=== PATIENT | male | born 2000 | race American Indian/Alaskan Native ===

== ENCOUNTER 2019-04-01 09:18 | Emergency (ER) | payer OTHER, SELFPAY ==
[2019-04-01 09:34] VITALS: BP 112/72; PULSE 85; RESP 15; TEMP 36.7; O2SAT 96; BMI 23.5
--- NOTE | 2019-04-01 10:07 | ED_ITS ---
HPI - URI/Sore Throat General Chief Complaint: Upper Respiratory Symptoms Stated Complaint: thing in throat,hurts to swallow Time Seen by Provider: 04/01/19 09:58 Source: patient Mode of arrival: Ambulatory Limitations: no limitations History of Present Illness HPI Narrative: 18-year-old male here for evaluation of a sore throat and throat fullness. States has been going on for the past couple days. No sinus con gestion. Is able to swallow and maintain his airway. Has not tried anything for symptoms prior to arrival Related Data Previous Rx's Medication Instructions Recorded loratadine [Claritin] 10 mg PO DAILY PRN #30 tab 04/01/19 Allergies Allergy/AdvReac Type Severity Reaction Status Date / Time No Known Drug Allergies Allergy Verified 04/01/19 09:34 Review of Systems Constitutional Constitutional: Denies fever(s), Denies headache(s), Denies lethargy and Denies malaise ENT Ears, Nose, Mouth, and Throat: Denies change in voice, Denies headache(s), Reports sore throat and Reports throat swelling Cardiovascular Cardiovascular: Denies chest pain and Denies dyspnea Respiratory Respiratory: Denies dyspnea Gastrointestinal Gastrointestinal: Denies abdominal pain, Denies nausea and Denies vomiting Genitourinary Genitourinary: Denies dysuria Musculoskeletal Musculoskeletal: Denies myalgias and Denies arthralgias Integumentary/Breasts Skin/Breast: Denies rash Neurologic Neurologic: Denies behavioral changes and Denies headache(s) Psychiatric Psychiatric: Denies behavioral changes Hematologic/Lymphatic Hematologic/Lymphatic: Denies easy bleeding and Denies easy bruising Allergic/Immunologic Allergic/Immunologic: Reports throat swelling [facility] Medical History Patient denies medical problems (Acute) Social History Smoking Status: Current every day smoker Social History Smoking Status: Current every day smoker Exam Initial Vital Signs Initial Vital Signs: Vital Signs Temperature 98.1 F 04/01/19 09:34 Pulse Rate 85 04/01/19 09:34 Respiratory Rate 15 04/01/19 09:34 Blood Pressure 112/72 04/01/19 09:34 Pulse Oximetry 96 04/01/19 09:34 Const General: cooperative, comfortable and well developed Orientation: alert, awake and oriented x3 HENMT Head: normal to inspection and normocephalic Ears: TM normal on the right and other (Left TM bulging without redness) Face and sinus: normal facial exam Throat: posterior oropharynx normal Neck Lymphatic: lymphadenopathy Resp Effort & Inspection: normal respiratory effort Auscultation: clear to auscultation bilaterally Cardio Rate: regular rate Rhythm: regular rhythm Skin Lesions: no lesions Rashes: no rashes Neuro General: alert and awake Cognition: normal cognition Speech: speech normal Extrem General: capillary refill normal Psych Appearance: grossly normal and well kempt Course Orders Ordered: Discontinued Medications Dexamethasone (Decadron) 10 mg PO NOW ONE Stop: 04/01/19 10:07 Vital Signs Vital signs: Vital Signs - 8 hr 04/01/19 09:34 Temperature 98.1 F Pulse Rate 85 Respiratory Rate 15 Blood Pressure 112/72 Pulse Oximetry 96 MDM - URI/Sore Throat Lab Data Labs: Point of Care Testing Rapid Strep A Negative [facility] [place] Narrative Medical decision making narrative: Rapid strep is negative, does have left bulging tympanic membrane. Does have lymphadenopathy as well. Patient is ma intaining airway. Is tolerating secretions. Was given Decadron here in the ER. Will send home with symptom treatment. No further workup needed in the ER. He is given return precautions and follow-up money. He expressed understanding and agreement plan Discharge Plan Departure Patient Disposition: Home Clinical Impression: Pharyngitis Qualifiers: Pharyngitis/tonsillitis etiology: unspecified etiology Qualified Code(s): J02.9 - Acute pharyngitis, unspecified Instructions: Sore Throat Activity Restrictions/Additional Instructions: Recommend you start taking the decongestant you were given a prescription for today as directed. Contact your primary provider for follow-up. Return to the emergency department for any new or worsening symptoms Prescriptions: New loratadine [Claritin] 10 mg tablet 10 mg PO DAILY PRN (Reason: allergy symptoms) Qty: 30 RF: 0
[2019-04-01] MEDS: DEXAMETHASONE 10 MG/ML VIAL PO (10:24)
[2019-04-01 10:25] VITALS: BP 114/65; PULSE 79; RESP 16; O2SAT 98
== END 2019-04-01 10:30 | disposition home or self-care (01) ==
PROVIDERS: Emergency Provider Emergency Medicine
DX: J02.9 Acute pharyngitis, unspecified (principal)
CPT/HCPCS: 87880; 99282; 99283; J1100

== ENCOUNTER 2019-04-13 12:45 | Emergency (ER) | payer OTHER, SELFPAY ==
[2019-04-13 13:23] VITALS: BP 105/66; PULSE 72; RESP 15; TEMP 36.3; O2SAT 96; BMI 25.0
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
--- NOTE | 2019-04-13 13:45 | PC.NURSE ---
Pt denies loss bowel/bladder
== END 2019-04-13 14:02 | disposition home or self-care (01) ==
PROVIDERS: Emergency Provider Internal Medicine
DX: M53.3 Sacrococcygeal disorders, not elsewhere classified (principal)
CPT/HCPCS: 99282

== ENCOUNTER 2022-03-05 12:42 | Emergency (ER) | payer SELFPAY ==
[2022-03-05 12:48] VITALS: BP 125/60; PULSE 92; RESP 19; TEMP 37.1; O2SAT 99; BMI 33.2
--- NOTE | 2022-03-05 16:07 | ED_ITS ---
HPI - Skin/Abscess/Foreign Bdy General Chief complaint: Skin/Abscess/Foreign Body Stated complaint: Bumps on the lip Time Seen by Provider: 03/05/22 15:30 Source: patient Mode of arrival: Family Vehicle Limitations: no limitations History of Present Illness HPI narrative: This is a 21-year-old male who presents to the emergency department complaining of bumps on his lip which he noticed yesterday. He denies any recent fever, chills, new contact with anybody with this similar bumps. Patient's states that they are blisters, very tender, denies any bleeding or any lesions in his mouth. He denies any other lesions on his hands, feet, genitals or other. Related Data Previous Rx's Medication Instructions Recorded loratadine 10 mg tablet (Claritin) 10 mg PO DAILY PRN allergy 04/01/19 symptoms #30 tabs meloxicam 7.5 mg tablet (Mobic) 7.5 mg PO DAILY back pain #30 tabs 04/13/19 docosanol 10 % topical cream 1 applic topical 5XD #2 grams 03/05/22 (Abreva) mupirocin 2 % topical ointment 1 applic topical BID #15 grams 03/05/22 valacyclovir 1 gram tablet 1,000 mg PO BID 7 days #14 tabs 03/05/22 (Valtrex) Allergies Allergy/AdvReac Type Severity Reaction Status Date / Time No Known Drug Allergies Allergy Verified 03/05/22 12:51 Review of Systems Review of Systems Narrative: Review of systems is negative for acute abnormalities unless otherwise noted in HPI Patient History Medical History Chronic low back pain Patient denies medical problems Surgical History Status post wisdom tooth extraction Social History Smoking Status: Current every day smoker Smoking Status: Current every day smoker tobacco type: cigarettes alcohol intake frequency: 0-2 drinks per day Substance Use Type: marijuana Exam Narrative Exam Narrative: Reviewed vitals signs and nursing notes. General: cooperative, comfortable, in no acute distress, well groomed HEENT: symmetrical facial expressions, moist mucous membranes, 2 blisters on his lips with 2 crusted over healing lesions that appeared to be vesicles previously. This looks most like herpetic lesions with blisters. Viral culture obtained and is pending, no intraoral involvement, nares are patent, mucous membranes are moist, EOMs intact, PERRLA MSK: moves all extremities, neurovascularly intact, no weakness, normal tone Skin: brisk capillary refill, without pallor or erythema Neuro: normal speech and cognition, A&O x3, ambulatory, clear speech Psych: mental status is grossly normal, congruent mood, normal affect, pleasant and cooperative Initial Vital Signs Initial Vital Signs: Vital Signs Temperature 98.8 F 03/05/22 12:48 Pulse Rate 92 H 03/05/22 12:48 Respiratory Rate 19 03/05/22 12:48 Blood Pressure 125/60 03/05/22 12:48 Pulse Oximetry 99 03/05/22 12:48 Oxygen Delivery Method 03/05/22 12:48 Course Vital Signs Vital signs: Vital Signs - 8 hr 03/05/22 12:48 Temperature 98.8 F Pulse Rate 92 H Respiratory Rate 19 Blood Pressure 125/60 Pulse Oximetry 99 Oxygen Delivery Method Room Air MDM - Skin/Abscess/Foreign Bdy MDM Narrative Medical decision making narrative: This is a 21-year-old male presents to the emergency department with vesicles on his lips that appeared yesterday without history of this in the past. This looked most like HSV, viral culture is pending, patient was treated with valacyclovir and given Abreva and topical mupirocin to use as needed. Encourage patient to follow-up with his primary care provider if this recurs, and to wear a mask if he is going to continue to work, avoid contact with young children and women. Patient understands that this is contagious as long as there are blisters and discharge. Patient is appropriate and amenable to discharge home. Vital signs are stable on repeat examination is unremarkable. Patient has been informed of results. Patient has been given strict return to ER precautions for any new or worsening symptoms. Patient understands to follow up closely with outpatient providers as instructed. Patient understands plan and agrees to discharge home. All questions and concerns answered at this time. 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 This is something that can come back, sometimes this happens if you have an injury to your lip, a sunburn, or in the winter time when your lips cracked. This may never come back again it is hard to know what will happen in the future. 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 Please avoid people if you know any while this is open. I hope you feel better soon *What to do: *Please continue to take your regular medications as directed. [x ] New medication prescriptions sent to your pharmacy: [facility]] [ ] New medication written as a paper prescription [ ] No new medications given *Please follow up with your primary care provider in 2-3 days, call for an appointment. Let them know you were seen in the Emergency Department and that we asked that you be seen for follow-up. We will electronically transmit a record of today's note if your PCP is in our system *If you do not have a primary care provider please contact [phone] to establish care with one of the [facility] primary care providers. *Return to Emergency Department if you should have any new, worsening, or concerning symptoms, such as [fever greater than 101F, chills, worsening pain, persistent vomiting or other bothersome symptoms]. Prescriptions: New valacyclovir [Valtrex] 1 gram tablet 1,000 mg PO BID 7 Days Qty: 14 0RF mupirocin 2 % ointment 1 applic topical BID Qty: 15 0RF docosanol [Abreva] 10 % cream 1 applic topical 5XD Qty: 2 0RF No Action loratadine [Claritin] 10 mg tablet 10 mg PO DAILY PRN (Reason: allergy symptoms) Qty: 30 0RF meloxicam [Mobic] 7.5 mg tablet 7.5 mg PO DAILY Qty: 30 0RF Rx Instructions: 1-2 tablets daily with food for back pain. Not with other NSAIDs Visit Report Forms: Patient Portal/API
== END 2022-03-05 16:22 | disposition home or self-care (01) ==
PROVIDERS: Emergency Provider Nurse Practitioner Critical Care Medicine
DX: B00.2 Herpesviral gingivostomatitis and pharyngotonsillitis (principal)
CPT/HCPCS: 87252; 99281; 99282

== ENCOUNTER 2022-03-30 16:06 | Emergency (ER) | payer SELFPAY ==
[2022-03-30 16:14] VITALS: BP 108/68; PULSE 65; RESP 18; TEMP 36.7; O2SAT 99; BMI 32.4
--- NOTE | 2022-03-30 19:02 | ED.EAR ---
HPI - Ear Problem <Anthony Chavira PA-C - Last Filed: 03/30/22 19:09> General Chief complaint: Ear Stated complaint: can't hear out of left ear Time Seen by Provider: 03/30/22 18:55 Source: patient Mode of arrival: Family Vehicle History of Present Illness HPI Narrative: Patient is a 21-year-old male who presents to the emergency room today with complaint diminished hearing in his left ear that started this morning. States that he has regained some of the urine was still mostly cannot hear. Denies drainage or pain of the but states that he had for respiratory issues for the last 2 weeks. Denies chest pain shortness of breath any other concerns the Related Data Previous Rx's Medication Instructions Recorded loratadine 10 mg tablet (Claritin) 10 mg PO DAILY PRN allergy 04/01/19 symptoms #30 tabs meloxicam 7.5 mg tablet (Mobic) 7.5 mg PO DAILY back pain #30 tabs 04/13/19 docosanol 10 % topical cream 1 applic topical 5XD #2 grams 03/05/22 (Abreva) mupirocin 2 % topical ointment 1 applic topical BID #15 grams 03/05/22 amoxicillin 500 mg-potassium 1 tab PO BID #14 tabs 03/30/22 clavulanate 125 mg tablet (Augmentin) Allergies Allergy/AdvReac Type Severity Reaction Status Date / Time No Known Drug Allergies Allergy Verified 03/30/22 16:14 Review of Systems <Anthony Chavira PA-C - Last Filed: 03/30/22 19:09> Review of Systems Narrative: R.O.S.: General: No fever, chills or fatigue. Cardiovascular: No chest pain or palpitations Respiratory: No S.O.B. HEENT: Difficulty hearing out of left ear since this morning Gastrointestinal: No nausea or vomiting Skin: No rash or associated abnormalities Musculoskeletal: No pain in muscles or joints, no limitation of range of motion, no paresthesia or numbness. ?? Neurological: Awake, alert and in not apparent distress. No Headaches, changes in vision or other related neurological concerns. Patient History <Anthony Chavira PA-C - Last Filed: 03/30/22 19:09> Medical History Chronic low back pain Patient denies medical problems Surgical History Status post wisdom tooth extraction Social History Smoking Status: Current every day smoker Smoking Status: Current every day smoker tobacco type: cigarettes alcohol intake frequency: 0-2 drinks per day Substance Use Type: marijuana Exam <Anthony Chavira PA-C - Last Filed: 03/30/22 19:09> Narrative Exam Narrative: Physical Exam: ? General: normal appearance, well developed, well nourished, alert, and awake. Not in acute distress. ? Head: Normocephalic, no lesions. Chest: Lungs CTAB, no rales, rhonchi or wheezes. ?? Heart: RRR, no murmurs, rubs or gallops. Ears: Left tympanic membrane brain is erythematous. Left ear Canal and moderate cerumen and is without drainage. Eyes: PERRLA, EOM's full, conjunctivae clear. ? Neuro: Physiological, no localizing findings, CN3-12 intact. ?? Extremities: Warm, well perfused, FROM, no deformities, no edema. ?? Skin: Normal, no rashes, no lesions noted. ?? PSYCHIATRIC: The mood is good, no blunted affect. Speech is clear. Thought process is linear, thought content is appropriate. The voice is without significant inflection. Gastrointestinal: Soft; NT; ND; Pos BS with Neg. rebound tenderness. No scars or major deformities noted on Visual Inspection. Initial Vital Signs Initial Vital Signs: Vital Signs Temperature 98.1 F 03/30/22 16:14 Pulse Rate 65 03/30/22 16:14 Respiratory Rate 18 03/30/22 16:14 Blood Pressure 108/68 03/30/22 16:14 Pulse Oximetry 99 03/30/22 16:14 Oxygen Delivery Method 03/30/22 16:14 <Carmen Her DO - Last Filed: 03/31/22 05:44> Initial Vital Signs Initial Vital Signs: Vital Signs Temperature 98.1 F 03/30/22 16:14 Pulse Rate 65 03/30/22 16:14 Respiratory Rate 18 03/30/22 16:14 Blood Pressure 108/68 03/30/22 16:14 Pulse Oximetry 99 03/30/22 16:14 Oxygen Delivery Method 03/30/22 16:14 Course <Anthony Chavira PA-C - Last Filed: 03/30/22 19:09> Vital Signs Vital signs: Vital Signs - 8 hr 03/30/22 16:14 Temperature 98.1 F Pulse Rate 65 Respiratory Rate 18 Blood Pressure 108/68 Pulse Oximetry 99 Oxygen Delivery Method Room Air <Carmen Her DO - Last Filed: 03/31/22 05:44> Vital Signs Vital signs: Vital Signs - 8 hr 03/30/22 16:14 Temperature 98.1 F Pulse Rate 65 Respiratory Rate 18 Blood Pressure 108/68 Pulse Oximetry 99 Oxygen Delivery Method Room Air Medical Decision Making <Anthony Chavira PA-C - Last Filed: 03/30/22 19:09> MDM Narrative Medical decision making narrative: Patient is a 21-year-old male who presents to the emergency room today with complaint decreased urine is clear sinuses nontender. Physical exam revealed an erythematous left tympanic membrane antibiotics ordered and provided discussed otitis media with patient. Patient advised to return to the emergency room should any emergent concerns otherwise the patient remained plan Discharge Plan Departure Patient Disposition: Home Clinical Impression: Otitis media Instructions: Middle Ear Infection Activity Restrictions/Additional Instructions: *You have been diagnosed with left middle ear infection. I have ordered antibiotics for UR bacterial infection I suggest you take the antibiotics as ordered. I also suggest she return to the emergency room any emergent concerns arise. [ ] *What to do: *Please continue to take your regular medications as directed. [x] New medication prescriptions sent to your pharmacy: [ ] [ ] New medication written as a paper prescription [ ] No new medications given *Please follow up with your primary care provider in 2-3 days, call for an appointment. Let them know you were seen in the Emergency Department and that we ask that you be seen in follow up. We will electronically transmit a record of today's note if your PCP is in our system *If you do not have a primary care provider please contact the [facility] Resource line at [phone]. They will ask some questions about your medical history and help get you set up with a doctor in the community. *Return to Emergency Department if you should have any new, worsening or concerning symptoms, such as [fever greater than 101 F, shaking chills, worsening pain, persistent vomiting or other bothersome symptoms] Prescriptions: New amoxicillin-pot clavulanate [Augmentin] 500-125 mg tablet 1 tab PO BID Qty: 14 0RF No Action loratadine [Claritin] 10 mg tablet 10 mg PO DAILY PRN (Reason: allergy symptoms) Qty: 30 0RF meloxicam [Mobic] 7.5 mg tablet 7.5 mg PO DAILY Qty: 30 0RF Rx Instructions: 1-2 tablets daily with food for back pain. Not with other NSAIDs mupirocin 2 % ointment 1 applic topical BID Qty: 15 0RF docosanol [Abreva] 10 % cream 1 applic topical 5XD Qty: 2 0RF Visit Report Forms: Patient Portal/API <Carmen Her DO - Last Filed: 03/31/22 05:44> Cosign ED Attending Cosignature Attestation: I was immediately available in the department for consultation. Documentation has been reviewed.
== END 2022-03-30 19:32 | disposition home or self-care (01) ==
PROVIDERS: Emergency Provider Physician Assistant
DX: H66.92 Otitis media, unspecified, left ear (principal)
CPT/HCPCS: 99281

== ENCOUNTER 2022-04-04 08:22 | Emergency (ER) | payer SELFPAY ==
[2022-04-04 08:29] VITALS: BP 134/82; PULSE 75; RESP 16; TEMP 36.7; O2SAT 98; BMI 29.0
--- NOTE | 2022-04-04 08:34 | ED_ITS ---
HPI - General Adult General Chief complaint: Eye Problems Stated complaint: Rt eye irritated/painful Time Seen by Provider: 04/04/22 08:30 Source: patient Mode of arrival: Ambulatory History of Present Illness HPI narrative: Patient is a 21-year-old male who does wear contact lenses who is here for evaluation of a right eye irritation/redness/?pressure? he states that last night when he was taking out his contact lenses when the symptoms started. He has no itching but just a pressure in his right eye. Watering and redness. He was recently seen here for left-sided acute otitis media and is on antibiotics for this. No fevers. No prior eye surgeries. Related Data Previous Rx's Medication Instructions Recorded loratadine 10 mg tablet (Claritin) 10 mg PO DAILY PRN allergy 04/01/19 symptoms #30 tabs meloxicam 7.5 mg tablet (Mobic) 7.5 mg PO DAILY back pain #30 tabs 04/13/19 docosanol 10 % topical cream 1 applic topical 5XD #2 grams 03/05/22 (Abreva) mupirocin 2 % topical ointment 1 applic topical BID #15 grams 03/05/22 amoxicillin 500 mg-potassium 1 tab PO BID #14 tabs 03/30/22 clavulanate 125 mg tablet (Augmentin) levofloxacin 0.5 % eye drops 2 drp EYE-RIGHT Q2H #5 mL 04/04/22 Allergies Allergy/AdvReac Type Severity Reaction Status Date / Time No Known Drug Allergies Allergy Verified 04/04/22 08:33 Review of Systems Constitutional Constitutional: Reports system reviewed and no additional complaints, except as documented Eyes Eyes: Reports system reviewed and no additional complaints, except as documented ENT Ears, Nose, Mouth, and Throat: Reports system reviewed and no additional complaints, except as documented Integumentary/Breasts Skin/Breast: Reports system reviewed and no additional complaints, except as documented Neurologic Neurologic: Reports system reviewed and no additional complaints, except as documented Patient History Medical History Chronic low back pain Patient denies medical problems Surgical History Status post wisdom tooth extraction Social History (Reviewed 04/04/22 @ 08:42 by VANE Swanson Smoking Status: Current every day smoker Smoking Status: Current every day smoker tobacco type: cigarettes alcohol intake frequency: 0-2 drinks per day Substance Use Type: marijuana Exam Initial Vital Signs Initial Vital Signs: Vital Signs Temperature 98.0 F 04/04/22 08:29 Pulse Rate 75 04/04/22 08:29 Respiratory Rate 16 04/04/22 08:29 Blood Pressure 134/82 04/04/22 08:29 Pulse Oximetry 98 04/04/22 08:29 Oxygen Delivery Method 04/04/22 08:29 Const General: cooperative, healthy appearing and comfortable [facility] Head: normal to inspection and normocephalic Face and sinus: normal facial exam Eyes Other: Left eye is unremarkable. Right eye shows no surrounding erythema. No foreign body. Does have scleral injection/redness. Clear drainage. Fluorescein staining does show a corneal abrasion at midline in the visual axis. No indication for ulceration. No foreign body noted. Skin Other: No cellulitis around the right eye Course Orders Ordered: Discontinued Medications Fluorescein Sodium (Fluorescein 1 Mg Strip) 1 mg EYE-BOTH NOW ONE Stop: 04/04/22 08:34 Proparacaine HCl (Proparacaine 0.5% Ophth Aliza) 1 drops EYE-RIGHT NOW ONE Stop: 04/04/22 08:34 Vital Signs Vital signs: Vital Signs - 8 hr 04/04/22 08:29 Temperature 98.0 F Pulse Rate 75 Respiratory Rate 16 Blood Pressure 134/82 Pulse Oximetry 98 Oxygen Delivery Method Room Air Medical Decision Making MDM Narrative Medical decision making narrative: History and physical exam is consistent with a right-sided corneal abrasion. He was given erythromycin ointment here in the emergency department however since he is a contact lens wear will send him home with Levaquin. This was sent to the pharmacy of his choice. He was instructed not to wear the contact lenses until his symptoms have improved. He was given return precautions. He expressed understanding and agreement. Discharge Plan Departure Patient Disposition: Home Clinical Impression: Corneal abrasion Instructions: DI for Corneal Abrasion Activity Restrictions/Additional Instructions: Use the antibiotics that was sent to [facility] per your recommendation. Do not wear your contact lenses for at least the next 4 days or until your symptoms have improved. Return to the emergency department for any new or worsening symptoms. Prescriptions: New levofloxacin 0.5 % drops 2 drp EYE-RIGHT Q2H Qty: 5 0RF Rx Instructions: 2GTT R eye Q2H for 2 days then Q6H for 5 days No Action loratadine [Claritin] 10 mg tablet 10 mg PO DAILY PRN (Reason: allergy symptoms) Qty: 30 0RF meloxicam [Mobic] 7.5 mg tablet 7.5 mg PO DAILY Qty: 30 0RF Rx Instructions: 1-2 tablets daily with food for back pain. Not with other NSAIDs mupirocin 2 % ointment 1 applic topical BID Qty: 15 0RF docosanol [Abreva] 10 % cream 1 applic topical 5XD Qty: 2 0RF amoxicillin-pot clavulanate [Augmentin] 500-125 mg tablet 1 tab PO BID Qty: 14 0RF Stand Alone Forms: Work Release Note
[2022-04-04] MEDS: ERYTHROMYCIN OPHTH 1 GM OINT 1 APPLIC EYE-RIGHT (08:47)
[2022-04-04] MEDS: PROPARACAINE 0.5% OPHTH SOL 1 DROPS EYE-RIGHT (08:47)
[2022-04-04] MEDS: FLUORESCEIN 1 MG STRIP EYE-BOTH (08:47)
[2022-04-04 09:03] VITALS: BP 132/84; PULSE 78; RESP 18; O2SAT 99
== END 2022-04-04 09:00 | disposition home or self-care (01) ==
PROVIDERS: Emergency Provider Emergency Medicine
DX: S05.01XA Injury of conjunctiva and corneal abrasion without foreign body, right eye, initial encounter (principal)
CPT/HCPCS: 99282

== ENCOUNTER 2022-10-26 17:16 | Emergency (ER) | payer SELFPAY ==
[2022-10-26 17:45] VITALS: BP 118/69; PULSE 106; RESP 22; TEMP 37.7; O2SAT 97; BMI 33.2
--- NOTE | 2022-10-26 18:18 | DI.CT.S_ITS ---
PROCEDURE: CT SOFT TISSUE NECK W CON INDICATIONS: Peritonsillar abscess versus cellulitis versus deep infectio TECHNIQUE: After the administration of intravenous contrast, 3.0 mm axial sections acquired from the sella to the aortic arch. Additional oblique axial 3.0 mm sections acquired through the pharynx. 3 mm thick coronal and sagittal reformats were generated. For radiation dose reduction, the following was used: automated exposure control. COMPARISON: None. FINDINGS: Skull Base: The visualized intracranial contents, skull, and orbits are unremarkable. Bilateral maxillary sinus retention cysts measure up to 1.4 cm Pharynx and Larynx: There is hyperemia and swelling of the both palatine tonsils, left greater than right without evidence of peritonsillar abscess Muscles and Fascial Planes: Fascial planes are well maintained. No abscess or mass lesion. Lymph Nodes: Reactive appearing bilateral deep cervical adenopathy measures up to 1.3 cm in short axis on the left Vasculature: Unremarkable. Submandibular and Parotid Glands: Normal in size and attenuation. Thyroid: Unremarkable. No enlarged or calcified nodules. Bones: No acute fracture. No osteolytic or blastic lesion is evident. Normal bone mineralization. Lung Apices: The visualized lung apices are clear. IMPRESSION: 1. Swollen hypertrophic bilateral palatine tonsils consistent with pharyngitis/tonsillitis. No evidence of peritonsillar abscess 2. Reactive appearing bilateral deep cervical adenopathy Approved by: Genaro Starkey M.D. on 10/26/2022 at 18:21
--- NOTE | 2022-10-26 18:24 | ED_ITS ---
HPI - URI/Sore Throat <ARLINE Morales - Last Filed: 10/26/22 19:36> General Chief Complaint: Upper Respiratory Symptoms Stated Complaint: Swollen tonsils Time Seen by Provider: 10/26/22 18:18 Source: patient Mode of arrival: Family Vehicle History of Present Illness HPI Narrative: This is a 21-year-old male who presents to the emergency department complaining of swollen tonsils for the last 2-3 days but states that his symptoms started approximately 3 weeks ago with bilateral ear pain, congestion and sometimes a fever. He states that he is had a fever, has had difficulty swallowing, denies any shortness of breath or difficulty breathing. Denies history of strep throat infections, denies recent antibiotics. States that he is not allergic to any medications. Does not know anybody with strep throat. Related Data Previous Rx's Medication Instructions Recorded loratadine 10 mg tablet (Claritin) 10 mg PO DAILY PRN allergy 04/01/19 symptoms #30 tabs meloxicam 7.5 mg tablet (Mobic) 7.5 mg PO DAILY back pain #30 tabs 04/13/19 docosanol 10 % topical cream 1 applic topical 5XD #2 grams 03/05/22 (Abreva) mupirocin 2 % topical ointment 1 applic topical BID #15 grams 03/05/22 amoxicillin 500 mg-potassium 1 tab PO BID #14 tabs 03/30/22 clavulanate 125 mg tablet (Augmentin) levofloxacin 0.5 % eye drops 2 drp EYE-RIGHT Q2H #5 mL 04/04/22 amoxicillin 875 mg-potassium 1 tab PO BID 10 days #20 tabs 10/26/22 clavulanate 125 mg tablet benzocaine 15 mg-menthol 3.6 mg 1 sharron mucous membrane Q4H PRN sore 10/26/22 lozenges (Cepacol Sore Throat throat #16 ea (benzocaine-menthol)) prednisone 20 mg tablet 20 mg PO DAILY #4 tabs 10/26/22 Allergies Allergy/AdvReac Type Severity Reaction Status Date / Time No Known Drug Allergies Allergy Verified 10/26/22 17:45 Review of Systems <ARLINE Morales - Last Filed: 10/26/22 19:36> Review of Systems ROS Unobtainable: All systems reviewed & are unremarkable except as noted in HPI and below Patient History <ARLINE Morales - Last Filed: 10/26/22 19:36> Medical History Chronic low back pain Patient denies medical problems Surgical History Status post wisdom tooth extraction Social History Smoking Status: Current every day smoker Smoking Status: Current every day smoker tobacco type: cigarettes alcohol intake frequency: holidays/special occasions only Substance Use Type: marijuana Exam <ARLINE Morales - Last Filed: 10/26/22 19:36> Narrative Exam Narrative: Reviewed vitals signs and nursing notes. General: Pleasant, sitting upright, in no acute distress, well groomed, low- grade fever at 99.9 at triage HEENT: symmetrical facial expressions, moist mucous membranes, neck is supple, mild anterior cervical lymphadenopathy, no cough, post dear pharynx with erythema, exudate, bilateral tonsils with exudate, uvula is midline, mildly muffled voice,, airway is widely patent, no stridor CV: Tachycardic rate and regular rhythm, warm extremities Respiratory: normal work of breathing, without tachypnea or hypoxia. GI: abdomen soft, nondistended, without CVA tenderness bilaterally. MSK: moves all extremities, no weakness, normal tone, ambulatory without deficit Skin: brisk capillary refill, without rash or wound Neuro: clear speech and normal cognition, A&O x3, GCS 15, no focal motor or sensation deficits Initial Vital Signs Initial Vital Signs: Vital Signs Temperature 99.9 F H 10/26/22 17:45 Pulse Rate 106 H 10/26/22 17:45 Respiratory Rate 22 10/26/22 17:45 Blood Pressure 118/69 10/26/22 17:45 Pulse Oximetry 97 10/26/22 17:45 Oxygen Delivery Method Room Air 10/26/22 17:45 <Jose Henley DO - Last Filed: 10/26/22 20:30> Initial Vital Signs Initial Vital Signs: Vital Signs Temperature 99.9 F H 10/26/22 17:45 Pulse Rate 106 H 10/26/22 17:45 Respiratory Rate 22 10/26/22 17:45 Blood Pressure 118/69 10/26/22 17:45 Pulse Oximetry 97 10/26/22 17:45 Oxygen Delivery Method Room Air 10/26/22 17:45 Course <ARLINE Morales - Last Filed: 10/26/22 19:36> Orders Ordered: ED Orders 10/26/22 18:18 CT soft tissue neck w con Stat 10/26/22 18:35 CBC Auto Diff [Complete Blood Count AUTO DIFF] Stat CMP [Comprehensive Metabolic Panel] Stat Lactate (Lactic Acid) Stat Strep Grp A by PCR Rapid Stat 10/26/22 18:36 Throat Culture Stat Discontinued Medications Dexamethasone (Dexamethasone 10 Mg/Ml Vial) 16 mg PO NOW ONE Stop: 10/26/22 18:19 Last Admin: 10/26/22 18:46 Dose: 16 mg Documented By: RL Hydromorphone HCl (Hydromorphone 0.5 Mg Inj) 0.5 mg IV NOW ONE Stop: 10/26/22 18:19 Last Admin: 10/26/22 18:46 Dose: 0.5 mg Documented By: RL Sodium Chloride (Normal Saline 0.9%) 1,000 mls @ 1,000 mls/hr IV BOLUS ONE Stop: 10/26/22 19:17 Last Admin: 10/26/22 18:47 Dose: 1,000 mls/hr Documented By: RL Ketorolac Tromethamine (Ketorolac 30 Mg/Ml Vial) 30 mg IM NOW ONE Stop: 10/26/22 18:19 Last Admin: 10/26/22 18:47 Dose: 30 mg Documented By: RL Penicillin G Benzathine (Penicillin G Benzathine 1,200,000 Unit/2 Ml Syringe) 1,200,000 unit IM NOW ONE Stop: 10/26/22 18:23 Last Admin: 10/26/22 18:46 Dose: 1,200,000 unit Documented By: MATILDE Vital Signs Vital signs: Vital Signs - 8 hr 10/26/22 17:45 10/26/22 19:50 Temperature 99.9 F H 97.8 F Pulse Rate 106 H 76 Respiratory Rate 22 16 Blood Pressure 118/69 132/80 Pulse Oximetry 97 97 Oxygen Delivery Method Room Air Room Air <Jose Henley DO - Last Filed: 10/26/22 20:30> Orders Ordered: ED Orders 10/26/22 18:18 CT soft tissue neck w con Stat 10/26/22 18:35 CBC Auto Diff [Complete Blood Count AUTO DIFF] Stat CMP [Comprehensive Metabolic Panel] Stat Lactate (Lactic Acid) Stat Strep Grp A by PCR Rapid Stat 10/26/22 18:36 Throat Culture Stat Discontinued Medications Dexamethasone (Dexamethasone 10 Mg/Ml Vial) 16 mg PO NOW ONE Stop: 10/26/22 18:19 Last Admin: 10/26/22 18:46 Dose: 16 mg Documented By: RL Hydromorphone HCl (Hydromorphone 0.5 Mg Inj) 0.5 mg IV NOW ONE Stop: 10/26/22 18:19 Last Admin: 10/26/22 18:46 Dose: 0.5 mg Documented By: RL Sodium Chloride (Normal Saline 0.9%) 1,000 mls @ 1,000 mls/hr IV BOLUS ONE Stop: 10/26/22 19:17 Last Admin: 10/26/22 18:47 Dose: 1,000 mls/hr Documented By: RL Ketorolac Tromethamine (Ketorolac 30 Mg/Ml Vial) 30 mg IM NOW ONE Stop: 10/26/22 18:19 Last Admin: 10/26/22 18:47 Dose: 30 mg Documented By: RL Penicillin G Benzathine (Penicillin G Benzathine 1,200,000 Unit/2 Ml Syringe) 1,200,000 unit IM NOW ONE Stop: 10/26/22 18:23 Last Admin: 10/26/22 18:46 Dose: 1,200,000 unit Documented By: RL Vital Signs Vital signs: Vital Signs - 8 hr 10/26/22 17:45 10/26/22 19:50 Temperature 99.9 F H 97.8 F Pulse Rate 106 H 76 Respiratory Rate 22 16 Blood Pressure 118/69 132/80 Pulse Oximetry 97 97 Oxygen Delivery Method Room Air Room Air MDM - URI/Sore Throat <ARLINE Morales - Last Filed: 10/26/22 19:36> Lab Data 10/26/22 18:35 10/26/22 18:35 Labs: Lab Results 10/26/22 10/26/22 10/26/22 Range/Units 18:35 18:35 18:35 WBC 18.4 H (4.5-11.0) X10^3/uL RBC 4.80 (4.5-5.9) X10^6/uL Hgb 14.1 (13.5-17.5) g/dL Hct 40.7 L (41-53) % MCV 84.9 (80-100) fL MCH 29.4 (26-34) PG MCHC 34.6 (30-36) % RDW 12.9 (11.6-14.8) % Plt Count 359 (150-400) X10^3/uL Neut % (Auto) 84.6 H (50-75) % Lymph % (Auto) 9.1 L (25-40) % Mineral % (Auto) 6.1 (3-14) % Eos % (Auto) 0.0 L (2-4) % Baso % (Auto) 0.2 (0-2) % Neut # (Auto) 63034 H (6938-3245) /uL Lymph # (Auto) 1700 (8466-4559) /uL Mineral # (Auto) 1100 H (0-900) /uL Eos # (Auto) 0 (0-450) /uL Baso # (Auto) 0 (0-100) /uL Sodium 134 L (137-145) mmol/L Potassium 3.8 (3.4-5.1) mmol/L Chloride 100 (98-107) mmol/L Carbon Dioxide 29 (22-32) mmol/L BUN 5 L (9-20) mg/dL Creatinine 0.76 (0.66-1.25) mg/dL Estimated GFR > 60 (>60) mL/min BUN/Creatinine Ratio 6.6 (6-22) Glucose 103 H (70-100) mg/dL Lactate 0.8 (0.7-2.1) mmol/L Calcium 8.8 (8.4-10.2) mg/dL Total Bilirubin 0.7 (0.2-1.3) mg/dL AST 37 (17-59) IU/L ALT 37 (<50) IU/L Alkaline Phosphatase 80 (38-126) U/L Total Protein 7.5 (6.3-8.2) g/dL Albumin 4.3 (3.5-5.0) g/dL Globulin 3.2 (1.7-4.1) g/dL Albumin/Globulin Ratio 1.3 (1.0-2.8) Group A Strep (PCR) (Negative) 10/26/22 Range/Units 18:35 WBC (4.5-11.0) X10^3/uL RBC (4.5-5.9) X10^6/uL Hgb (13.5-17.5) g/dL Hct (41-53) % MCV (80-100) fL MCH (26-34) PG MCHC (30-36) % RDW (11.6-14.8) % Plt Count (150-400) X10^3/uL Neut % (Auto) (50-75) % Lymph % (Auto) (25-40) % Mineral % (Auto) (3-14) % Eos % (Auto) (2-4) % Baso % (Auto) (0-2) % Neut # (Auto) (3715-1131) /uL Lymph # (Auto) (8340-7775) /uL Mineral # (Auto) (0-900) /uL Eos # (Auto) (0-450) /uL Baso # (Auto) (0-100) /uL Sodium (137-145) mmol/L Potassium (3.4-5.1) mmol/L Chloride (98-107) mmol/L Carbon Dioxide (22-32) mmol/L BUN (9-20) mg/dL Creatinine (0.66-1.25) mg/dL Estimated GFR (>60) mL/min BUN/Creatinine Ratio (6-22) Glucose (70-100) mg/dL Lactate (0.7-2.1) mmol/L Calcium (8.4-10.2) mg/dL Total Bilirubin (0.2-1.3) mg/dL AST (17-59) IU/L ALT (<50) IU/L Alkaline Phosphatase (38-126) U/L Total Protein (6.3-8.2) g/dL Albumin (3.5-5.0) g/dL Globulin (1.7-4.1) g/dL Albumin/Globulin Ratio (1.0-2.8) Group A Strep (PCR) Positive H (Negative) Imaging Data CT soft tissue neck: Radiologist's Impression: PROCEDURE:? CT SOFT TISSUE NECK W CON ? INDICATIONS:? Peritonsillar abscess versus cellulitis versus deep infectio ? TECHNIQUE:? After the administration of intravenous contrast, 3.0 mm axial sections acquired from the sella to the aortic arch.? Additional oblique axial 3.0 mm sections acquired through the pharynx.? 3 mm thick coronal and sagittal reformats were generated.? For radiation dose reduction, the following was used:? automated exposure control.? ? COMPARISON:? None. ? FINDINGS: ? Skull Base: The visualized intracranial contents, skull, and orbits are unremarkable.? Bilateral maxillary sinus retention cysts measure up to 1.4 cm ? Pharynx and Larynx:? There is hyperemia and swelling of the both palatine ton sils, left greater than right without evidence of peritonsillar abscess ? Muscles and Fascial Planes:? Fascial planes are well maintained.? No abscess or mass lesion. ? Lymph Nodes:? Reactive appearing bilateral deep cervical adenopathy measures up to 1.3 cm in short axis on the left ? Vasculature:? Unremarkable. ? Submandibular and Parotid Glands:? Normal in size and attenuation. ? Thyroid:? Unremarkable.? No enlarged or calcified nodules. ? Bones:? No acute fracture.? No osteolytic or blastic lesion is evident. Normal bone mineralization. ? Lung Apices:? The visualized lung apices are clear. ? IMPRESSION: ? 1. Swollen hypertrophic bilateral palatine tonsils consistent with pharyngitis/tonsillitis.? No evidence of peritonsillar abscess ? 2. Reactive appearing bilateral deep cervical adenopathy ?? Approved by: Genaro Starkey M.D. on 10/26/2022 at 18:21? [facility] Narrative Medical decision making narrative: Chief Complaint: Sore throat swollen tonsils Independent historian: Patient Multiple etiologies for patient's symptoms considered including, but not limited to: Bacterial pharyngitis including streptococcal infection, peritonsillar abscess, deep neck space infection, Steve's angina, tonsillitis I have independently reviewed the patient's vital signs and nursing notes as well as prior records if available. My interpretation of lab studies: Rapid strep is positive for group a strepThroat culture is pending CBC, is significant for leukocytosis of 18.4, no anemia, there is a left shift, CMP is unremarkable My interpretation of imaging: CT soft tissue neck shows enlarged tonsils bilaterally, uvula is midline, airway is patent, although narrowed, is maintaining his airway without stridor or any respiratory distress Course of care: Patient was treated with 16 mg of p.o. Decadron, Toradol 30 mg IM, hydrocodone and penicillin G IM ,00 units Will discharge patient home with Augmentin b.i.d., he is not had recent antibiotics, no recent dental procedures or upper respiratory infections other than his symptoms leading up to this visit today. He was given 3 days of prednisone, recommended take ibuprofen, throat lozenges, and Augmentin b.i.d. times 10 days, recommend that patient take at least 7 days of this although he did receive penicillin G today.. Radiology report shows that patient bilateral tonsillar or adenopathy without abscess or other fluid collection, no deep space neck infection although he does have reactive appearing bilateral deep cervical adenopathy. He was provided follow-up contact information for Dr. Preciado if he has any worsening. He was treated with medications as listed above and sent home with a prescription of prednisone 20 mg x 4 days, Augmentin, and throat lozenges. Social considerations that may affect disposition: none Questions are addressed and there is agreement with the plan and for follow-up. Patient is appropriate for outpatient management. <Jose Henley, - Last Filed: 10/26/22 20:30> Lab Data Labs: Lab Results 10/26/22 10/26/22 10/26/22 Range/Units 18:35 18:35 18:35 WBC 18.4 H (4.5-11.0) X10^3/uL RBC 4.80 (4.5-5.9) X10^6/uL Hgb 14.1 (13.5-17.5) g/dL Hct 40.7 L (41-53) % MCV 84.9 (80-100) fL MCH 29.4 (26-34) PG MCHC 34.6 (30-36) % RDW 12.9 (11.6-14.8) % Plt Count 359 (150-400) X10^3/uL Neut % (Auto) 84.6 H (50-75) % Lymph % (Auto) 9.1 L (25-40) % Mineral % (Auto) 6.1 (3-14) % Eos % (Auto) 0.0 L (2-4) % Baso % (Auto) 0.2 (0-2) % Neut # (Auto) 36249 H (8167-1655) /uL Lymph # (Auto) 1700 (5236-4361) /uL Mineral # (Auto) 1100 H (0-900) /uL Eos # (Auto) 0 (0-450) /uL Baso # (Auto) 0 (0-100) /uL Sodium 134 L (137-145) mmol/L Potassium 3.8 (3.4-5.1) mmol/L Chloride 100 (98-107) mmol/L Carbon Dioxide 29 (22-32) mmol/L BUN 5 L (9-20) mg/dL Creatinine 0.76 (0.66-1.25) mg/dL Estimated GFR > 60 (>60) mL/min BUN/Creatinine Ratio 6.6 (6-22) Glucose 103 H (70-100) mg/dL Lactate 0.8 (0.7-2.1) mmol/L Calcium 8.8 (8.4-10.2) mg/dL Total Bilirubin 0.7 (0.2-1.3) mg/dL AST 37 (17-59) IU/L ALT 37 (<50) IU/L Alkaline Phosphatase 80 (38-126) U/L Total Protein 7.5 (6.3-8.2) g/dL Albumin 4.3 (3.5-5.0) g/dL Globulin 3.2 (1.7-4.1) g/dL Albumin/Globulin Ratio 1.3 (1.0-2.8) Group A Strep (PCR) (Negative) 10/26/22 Range/Units 18:35 WBC (4.5-11.0) X10^3/uL RBC (4.5-5.9) X10^6/uL Hgb (13.5-17.5) g/dL Hct (41-53) % MCV (80-100) fL MCH (26-34) PG MCHC (30-36) % RDW (11.6-14.8) % Plt Count (150-400) X10^3/uL Neut % (Auto) (50-75) % Lymph % (Auto) (25-40) % Mineral % (Auto) (3-14) % Eos % (Auto) (2-4) % Baso % (Auto) (0-2) % Neut # (Auto) (3236-1000) /uL Lymph # (Auto) (4077-7405) /uL Mineral # (Auto) (0-900) /uL Eos # (Auto) (0-450) /uL Baso # (Auto) (0-100) /uL Sodium (137-145) mmol/L Potassium (3.4-5.1) mmol/L Chloride (98-107) mmol/L Carbon Dioxide (22-32) mmol/L BUN (9-20) mg/dL Creatinine (0.66-1.25) mg/dL Estimated GFR (>60) mL/min BUN/Creatinine Ratio (6-22) Glucose (70-100) mg/dL Lactate (0.7-2.1) mmol/L Calcium (8.4-10.2) mg/dL Total Bilirubin (0.2-1.3) mg/dL AST (17-59) IU/L ALT (<50) IU/L Alkaline Phosphatase (38-126) U/L Total Protein (6.3-8.2) g/dL Albumin (3.5-5.0) g/dL Globulin (1.7-4.1) g/dL Albumin/Globulin Ratio (1.0-2.8) Group A Strep (PCR) Positive H (Negative) Discharge Plan Departure Patient Disposition: Home Clinical Impression: Group A streptococcal infection Acute tonsillitis Qualifiers: Pharyngitis/tonsillitis etiology: streptococcus Streptococcal tonsillitis recurrence: non-recurrent Qualified Code(s): J03.00 - Acute streptococcal tonsillitis, unspecified Instructions: Strep Throat Activity Restrictions/Additional Instructions: *You have been diagnosed with throat. These medications should help, please take ibuprofen and Tylenol every 6 hours as needed for your pain. Stay hydrated, drink clear fluids, use the throat lozenges, and follow-up the ear nose and throat doctor if you have any worsening. The CT does not show any concerning abscess or fluid collection, you should start to get better in a few days, given you a steroid for 4 days to help with the swelling, take ibuprofen 800 mg every 8 hours with food and water, take Tylenol in addition to the as needed for pain, and use throat lozenges as needed. Drink plenty of clear fluids, take this antibiotic for least 7 days. Schedule an appointment with the ear nose and throat physician attached Dr. Preciado in case you have any worsening. *What to do: *Please continue to take your regular medications as directed. [ x] New medication prescriptions sent to your pharmacy: [ [facility]] [ ] New medication written as a paper prescription [ ] No new medications given *Please call and schedule follow up with your primary care provider in 2-3 days, at least for an update. Let them know you were seen in the Emergency Department for the above problem. We will electronically transmit a record of today's note if your PCP or specialist is in our system. *If you do not have a primary care provider please contact [phone] to establish care with one of the [facility] primary care providers. *Return to the Emergency Department for worsening symptoms, inability to keep liquids down, fever greater than 101F, chills, or other concerning symptom. Prescriptions: New Cepacol Sore Throat (mendoza-men) 15-3.6 mg lozenge 1 sharron mucous membrane Q4H PRN (Reason: sore throat) Qty: 16 0RF amoxicillin-pot clavulanate 875-125 mg tablet 1 tab PO BID 10 Days Qty: 20 0RF prednisone 20 mg tablet 20 mg PO DAILY Qty: 4 0RF No Action loratadine [Claritin] 10 mg tablet 10 mg PO DAILY PRN (Reason: allergy symptoms) Qty: 30 0RF meloxicam [Mobic] 7.5 mg tablet 7.5 mg PO DAILY Qty: 30 0RF Rx Instructions: 1-2 tablets daily with food for back pain. Not with other NSAIDs levofloxacin 0.5 % drops 2 drp EYE-RIGHT Q2H Qty: 5 0RF Rx Instructions: 2GTT R eye Q2H for 2 days then Q6H for 5 days mupirocin 2 % ointment 1 applic topical BID Qty: 15 0RF docosanol [Abreva] 10 % cream 1 applic topical 5XD Qty: 2 0RF amoxicillin-pot clavulanate [Augmentin] 500-125 mg tablet 1 tab PO BID Qty: 14 0RF Referrals: Que Preciado MD [Physician] - Stand Alone Forms: Patient Portal/API <Jose Henley DO - Last Filed: 10/26/22 20:30> Cosign ED Attending Cosignature Attestation: Dr Henley Co-Sign Statement: I was available for consultation during this patient's emergency department visit. This chart is signed by myself for administrative purposes only. I did not have direct contact with this patient during this visit. They were seen independently by the APC.
[2022-10-26 18:42] LABS: Add Manual Diff / Slide Review NO; Basophils Absolute Auto 0 /uL (0-100); Basophils Percent Auto 0.2 % (0-2); Eosinophils Absolute Auto 0 /uL (0-450); Hematocrit 40.7 % (41-53); Hemoglobin 14.1 g/dL (13.5-17.5); Lymphocytes Absolute Auto 1700 /uL (1100-4500); Lymphocytes Percent Auto 9.1 % (25-40); Mean Corpuscular HGB Conc 34.6 % (30-36); Mean Corpuscular Hemoglobin 29.4 PG (26-34); Mean Corpuscular Volume 84.9 fL (80-100); Monocytes Absolute Auto 1100 /uL (0-900); Monocytes Percent Auto 6.1 % (3-14); Neutrophils Absolute Auto 15600 /uL (1500-7000); Neutrophils Percent Auto 84.6 % (50-75); Platelet Count 359 X10^3/uL (150-400); Red Cell Distribution Width 12.9 % (11.6-14.8); White Blood Cell Count 18.4 X10^3/uL (4.5-11.0)
[2022-10-26] MEDS: HYDROMORPHONE 0.5 MG INJ IV (18:46)
[2022-10-26] MEDS: DEXAMETHASONE 10 MG/ML VIAL 16 MG PO (18:46)
[2022-10-26] MEDS: PENICILLIN G BENZATHINE 1,200,000 UNIT/2 ML SYRINGE 1200000 UNIT IM (18:46)
[2022-10-26] MEDS: SODIUM CHLORIDE 0.9% 1,000 ML 1000 ML IV (18:47)
[2022-10-26] MEDS: KETOROLAC 30 MG/ML VIAL IM (18:47)
[2022-10-26 18:53] LABS: Lactate (Lactic Acid) 0.8 mmol/L (0.7-2.1)
[2022-10-26 18:54] LABS: Alanine Aminotransferase 37 IU/L (<50); Albumin 4.3 g/dL (3.5-5.0); Albumin Globulin Ratio 1.3 (1.0-2.8); Alkaline Phosphatase 80 U/L (38-126); Aspartate Aminotransferase 37 IU/L (17-59); BUN Creatinine Ratio 6.6 (6-22); Bilirubin Total 0.7 mg/dL (0.2-1.3); Blood Urea Nitrogen 5 mg/dL (9-20); Calcium 8.8 mg/dL (8.4-10.2); Carbon Dioxide 29 mmol/L (22-32); Chloride 100 mmol/L (98-107); Estimated Glomerular Filt Rate > 60 mL/min (>60); Globulin 3.2 g/dL (1.7-4.1); Glucose 103 mg/dL (70-100); HEMOLYSIS < 15 (0-50); Potassium 3.8 mmol/L (3.4-5.1); Sodium 134 mmol/L (137-145); Total Protein 7.5 g/dL (6.3-8.2)
[2022-10-26 18:55] LABS: Strep Grp A by PCR Rapid Positive (Negative)
[2022-10-26 19:50] VITALS: BP 132/80; PULSE 76; RESP 16; TEMP 36.6; O2SAT 97
== END 2022-10-26 19:51 | disposition home or self-care (01) ==
PROVIDERS: Emergency Provider Nurse Practitioner Critical Care Medicine
DX: J03.00 Acute streptococcal tonsillitis, unspecified (principal)
CPT/HCPCS: 36415; 70491; 80053; 83605; 85025; 87070; 87077; 87147; 87651; 96372; 96374; 99284; J0561; J1100; J1170; J1885; Q9967

== ENCOUNTER 2023-02-10 12:15 | Emergency (ER) | payer OTHER, SELFPAY ==
[2023-02-10 12:35] VITALS: BP 116/74; PULSE 67; RESP 18; TEMP 36.7; O2SAT 98; BMI 30.7
--- NOTE | 2023-02-10 14:05 | ED.BACK ---
HPI - Back Pain/Injury <Merced Rivera PA-C - Last Filed: 02/11/23 19:16> General Chief Complaint: Back Pain/Injury Stated Complaint: back pain Time Seen by Provider: 02/10/23 13:51 Source: patient History of Present Illness HPI Narrative: 22-year-old male presents to the ED complaining of lower back pain after straining his back at work. 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 Patient denies numbness, tingling, weakness, saddle paresthesia, urinary hesitancy, urinary incontinence, bowel incontinence. Patient is walking normally. Related Data Previous Rx's Medication Instructions Recorded loratadine 10 mg tablet (Claritin) 10 mg PO DAILY PRN allergy 04/01/19 symptoms #30 tabs meloxicam 7.5 mg tablet (Mobic) 7.5 mg PO DAILY back pain #30 tabs 04/13/19 docosanol 10 % topical cream 1 applic topical 5XD #2 grams 03/05/22 (Abreva) mupirocin 2 % topical ointment 1 applic topical BID #15 grams 03/05/22 amoxicillin 500 mg-potassium 1 tab PO BID #14 tabs 03/30/22 clavulanate 125 mg tablet (Augmentin) levofloxacin 0.5 % eye drops 2 drp EYE-RIGHT Q2H #5 mL 04/04/22 benzocaine 15 mg-menthol 3.6 mg 1 sharron mucous membrane Q4H PRN sore 10/26/22 lozenges (Cepacol Sore Throat throat #16 ea (benzocaine-menthol)) prednisone 20 mg tablet 20 mg PO DAILY #4 tabs 10/26/22 cyclobenzaprine 10 mg tablet 10 mg PO TID PRN muscle spasm #10 02/10/23 tabs Allergies Allergy/AdvReac Type Severity Reaction Status Date / Time No Known Drug Allergies Allergy Verified 02/10/23 12:36 Review of Systems <Merced Rivera PA-C - Last Filed: 02/11/23 19:16> Review of Systems ROS Unobtainable: All systems reviewed & are unremarkable except as noted in HPI and below Constitutional Constitutional: Denies chills, Denies fatigue, Denies fever(s), Denies frequent falls, Denies lethargy and Denies weakness Eyes Eyes: Denies change in vision, Denies eye discharge, Denies irritation and Denies loss of vision ENT Ears, Nose, Mouth, and Throat: Denies change in voice, Denies dizziness, Denies neck pain, Denies sore throat and Denies throat swelling Cardiovascular Cardiovascular: Denies chest pain, Denies irregular heart rhythm, Denies lightheadedness, Denies palpitations, Denies dyspnea, Denies dyspnea on exertion and Denies orthopnea Respiratory Respiratory: Denies cough, Denies dyspnea, Denies dyspnea on exertion and Denies wheezing Gastrointestinal Gastrointestinal: Denies abdominal pain, Denies change in bowel habits, Denies diarrhea, Denies nausea and Denies vomiting Genitourinary Genitourinary: Denies hematuria, Denies flank pain, Denies urinary incontinence and Denies urinary urgency Musculoskeletal Musculoskeletal: Reports back pain, Denies muscle weakness, Denies neck pain, Denies numbness and Denies tingling Integumentary/Breasts Skin/Breast: Denies pruritus, Denies erythema, Denies rash and Denies wounds Neurologic Neurologic: Denies behavioral changes, Denies confusion, Denies dizziness, Denies frequent falls, Denies loss of vision, Denies numbness, Denies tingling and Denies weakness Psychiatric Psychiatric: Denies anxiety, Denies behavioral changes, Denies confusion, Denies depression, Denies homicidal ideation and Denies suicidal ideation Endocrine Endocrine: Denies fatigue, Denies flushing and Denies palpitations Hematologic/Lymphatic Hematologic/Lymphatic: Denies easy bruising Allergic/Immunologic Allergic/Immunologic: Denies urticaria, Denies throat swelling and Denies wheezing Patient History <Merced Rivera PA-C - Last Filed: 02/11/23 19:16> Medical History Chronic low back pain Patient denies medical problems Surgical History Status post wisdom tooth extraction Social History Smoking Status: Current every day smoker Smoking Status: Current every day smoker tobacco type: cigarettes alcohol intake frequency: holidays/special occasions only Substance Use Type: marijuana Exam <Merced Rivera PA-C - Last Filed: 02/11/23 19:16> Narrative Exam Narrative: Const General:?cooperative, healthy appearing and comfortable [facility] Head:?normal to inspection Ears:?hearing grossly normal bilaterally Nose:?external nose normal Face and sinus:?normal facial exam and sinuses nontender Mouth:?oral mucosae normal Throat:?posterior oropharynx normal Eyes General:?appearance normal, both eyes and all related structures Neck Neck:?normal visual inspection and no lymphadenopathy noted Resp Effort & Inspection:?normal respiratory effort Auscultation:?clear to auscultation bilaterally Cardio Rate:?regular rate Rhythm:?regular rhythm Musculoskeletal No midline tenderness to palpation. No paraspinal tenderness to palpation. There is full range of motion. Strength and sensation is intact. Patient is neurovascularly intact. Gait is normal. Neuro General:?patient alert, patient awake and patient oriented x3 Initial Vital Signs Initial Vital Signs: Vital Signs Temperature 98.1 F 02/10/23 12:35 Pulse Rate 67 02/10/23 12:35 Respiratory Rate 18 02/10/23 12:35 Blood Pressure 116/74 02/10/23 12:35 Pulse Oximetry 98 02/10/23 12:35 Oxygen Delivery Method Room Air 02/10/23 12:35 <Carmen Her DO - Last Filed: 02/11/23 19:27> Initial Vital Signs Initial Vital Signs: Vital Signs Temperature 98.1 F 02/10/23 12:35 Pulse Rate 67 02/10/23 12:35 Respiratory Rate 18 02/10/23 12:35 Blood Pressure 116/74 02/10/23 12:35 Pulse Oximetry 98 02/10/23 12:35 Oxygen Delivery Method Room Air 02/10/23 12:35 Course <Merced Rivera PA-C - Last Filed: 02/11/23 19:16> Orders Ordered: Discontinued Medications Cyclobenzaprine HCl (Cyclobenzaprine 10 Mg Tablet) 10 mg PO NOW ONE Stop: 02/10/23 14:10 Last Admin: 02/10/23 14:23 Dose: 10 mg Documented By: EVAN Ketorolac Tromethamine (Ketorolac 30 Mg/Ml Vial) 30 mg IM NOW ONE Stop: 02/10/23 14:10 Last Admin: 02/10/23 14:23 Dose: 30 mg Documented By: RB Lidocaine (Lidocaine Patch 1 Each Adh..Patch) 1 each TOP NOW ONE Stop: 02/10/23 14:10 Last Admin: 02/10/23 14:23 Dose: 1 each Documented By: RB Vital Signs Vital signs: Vital Signs - 8 hr 02/10/23 12:35 Temperature 98.1 F Pulse Rate 67 Respiratory Rate 18 Blood Pressure 116/74 Pulse Oximetry 98 Oxygen Delivery Method Room Air <Carmen Her DO - Last Filed: 02/11/23 19:27> Orders Ordered: Discontinued Medications Cyclobenzaprine HCl (Cyclobenzaprine 10 Mg Tablet) 10 mg PO NOW ONE Stop: 02/10/23 14:10 Last Admin: 02/10/23 14:23 Dose: 10 mg Documented By: RB Ketorolac Tromethamine (Ketorolac 30 Mg/Ml Vial) 30 mg IM NOW ONE Stop: 02/10/23 14:10 Last Admin: 02/10/23 14:23 Dose: 30 mg Documented By: RB Lidocaine (Lidocaine Patch 1 Each Adh..Patch) 1 each TOP NOW ONE Stop: 02/10/23 14:10 Last Admin: 02/10/23 14:23 Dose: 1 each Documented By: RB Vital Signs Vital signs: Vital Signs - 8 hr 02/10/23 12:35 Temperature 98.1 F Pulse Rate 67 Respiratory Rate 18 Blood Pressure 116/74 Pulse Oximetry 98 Oxygen Delivery Method Room Air MDM - Back Pain/Injury <Merced Rivera PA-C - Last Filed: 02/11/23 19:16> MDM Narrative Medical decision making narrative: 22-year-old male presents to the ED complaining of lower back pain after straining his back at work. Patient's history and physical exam most consistent with a strain of the lower back. Will give ketorolac, Flexeril, lidocaine patch for pain. Recommend continuing Flexeril, lidocaine patches, ibuprofen, Tylenol, heat packs. Recommend follow-up with PCP. ED return precautions discussed with patient. Patient verbalized understanding. Medical records reviewed: Yes Discharge Plan Departure Patient Disposition: Home Clinical Impression: Lower back pain Instructions: DI for Low Back Pain Activity Restrictions/Additional Instructions: You were evaluated in the ED today for lower back pain. Your symptoms are most likely due to a lower back sprain/strain. you were given a dose of ketorolac, lidocaine patch, Flexeril. You may continue to apply lidocaine patches, take ibuprofen, Tylenol, Flexeril. Return to the ED if you note any numbness, tingling, weakness, worsening symptoms. Prescriptions: New cyclobenzaprine 10 mg tablet 10 mg PO TID PRN (Reason: muscle spasm) Qty: 10 0RF No Action loratadine [Claritin] 10 mg tablet 10 mg PO DAILY PRN (Reason: allergy symptoms) Qty: 30 0RF meloxicam [Mobic] 7.5 mg tablet 7.5 mg PO DAILY Qty: 30 0RF Rx Instructions: 1-2 tablets daily with food for back pain. Not with other NSAIDs levofloxacin 0.5 % drops 2 drp EYE-RIGHT Q2H Qty: 5 0RF Rx Instructions: 2GTT R eye Q2H for 2 days then Q6H for 5 days Cepacol Sore Throat (mendoza-men) 15-3.6 mg lozenge 1 sharron mucous membrane Q4H PRN (Reason: sore throat) Qty: 16 0RF prednisone 20 mg tablet 20 mg PO DAILY Qty: 4 0RF mupirocin 2 % ointment 1 applic topical BID Qty: 15 0RF docosanol [Abreva] 10 % cream 1 applic topical 5XD Qty: 2 0RF amoxicillin-pot clavulanate [Augmentin] 500-125 mg tablet 1 tab PO BID Qty: 14 0RF Stand Alone Forms: Patient Portal/API <Carmen Her DO - Last Filed: 02/11/23 19:27> Cosign ED Attending Elijahature Attestation: I was immediately available in the department for consultation. Documentation has been reviewed.
[2023-02-10] MEDS: LIDOCAINE PATCH 1 EACH ADH..PATCH TOP (14:23)
[2023-02-10] MEDS: KETOROLAC 30 MG/ML VIAL IM (14:23)
[2023-02-10] MEDS: CYCLOBENZAPRINE 10 MG TABLET PO (14:23)
[2023-02-10 14:26] VITALS: BP 123/84; PULSE 72; RESP 18; O2SAT 99
== END 2023-02-10 14:35 | disposition home or self-care (01) ==
PROVIDERS: Emergency Provider Student in an Organized Health Care Education/Training Program
DX: M54.50 Low back pain, unspecified (principal); X50.9XXA Other and unspecified overexertion or strenuous movements or postures, initial encounter; Y99.0 Civilian activity done for income or pay
CPT/HCPCS: 96372; 99283; J1885

== ENCOUNTER 2023-02-13 21:45 | Emergency (ER) | payer OTHER, SELFPAY ==
[2023-02-13 22:55] VITALS: BP 125/50; PULSE 85; RESP 16; TEMP 36.9; O2SAT 98; BMI 30.7
[2023-02-13] MEDS: ACETAMINOPHEN 325 MG TABLET 975 MG PO (23:40)
[2023-02-14 01:40] VITALS: BP 92/57; PULSE 72; RESP 16; O2SAT 98
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
== END 2023-02-14 01:57 | disposition home or self-care (01) ==
PROVIDERS: Emergency Provider Emergency Medicine
DX: M54.50 Low back pain, unspecified (principal); V89.2XXA Person injured in unspecified motor-vehicle accident, traffic, initial encounter
CPT/HCPCS: 99282; 99283

== ENCOUNTER 2023-02-24 16:53 | Emergency (ER) | payer SELFPAY ==
[2023-02-24 17:21] VITALS: BP 121/68; PULSE 75; RESP 16; TEMP 37; O2SAT 99; BMI 30.7
[2023-02-24 17:53] LABS: Strep Grp A by PCR Rapid Positive (Negative)
[2023-02-24 17:59] LABS: COVID19 -Nasal RAPID Negative (Negative)
--- NOTE | 2023-02-24 18:56 | ED.GENADULT ---
HPI - General Adult General Chief complaint: Upper Respiratory Symptoms Stated complaint: INFECTION IN THROAT Time Seen by Provider: 02/24/23 18:49 Source: patient and family Mode of arrival: Ambulatory History of Present Illness HPI narrative: 22-year-old male. Has a couple days of sore throat, fever, chills, is able to swallow but has difficulty swallowing. No rashes. No problems breathing. Has not tried anything for the symptoms prior to arrival. Related Data Previous Rx's Medication Instructions Recorded loratadine 10 mg tablet (Claritin) 10 mg PO DAILY PRN allergy 04/01/19 symptoms #30 tabs meloxicam 7.5 mg tablet (Mobic) 7.5 mg PO DAILY back pain #30 tabs 04/13/19 docosanol 10 % topical cream 1 applic topical 5XD #2 grams 03/05/22 (Abreva) mupirocin 2 % topical ointment 1 applic topical BID #15 grams 03/05/22 amoxicillin 500 mg-potassium 1 tab PO BID #14 tabs 03/30/22 clavulanate 125 mg tablet (Augmentin) levofloxacin 0.5 % eye drops 2 drp EYE-RIGHT Q2H #5 mL 04/04/22 benzocaine 15 mg-menthol 3.6 mg 1 sharron mucous membrane Q4H PRN sore 10/26/22 lozenges (Cepacol Sore Throat throat #16 ea (benzocaine-menthol)) prednisone 20 mg tablet 20 mg PO DAILY #4 tabs 10/26/22 cyclobenzaprine 10 mg tablet 10 mg PO TID PRN muscle spasm #10 02/10/23 tabs Allergies Allergy/AdvReac Type Severity Reaction Status Date / Time No Known Drug Allergies Allergy Verified 02/10/23 12:36 Review of Systems Constitutional Constitutional: Reports system reviewed and no additional complaints, except as documented ENT Ears, Nose, Mouth, and Throat: Reports system reviewed and no additional complaints, except as documented Respiratory Respiratory: Reports system reviewed and no additional complaints, except as documented Gastrointestinal Gastrointestinal: Reports system reviewed and no additional complaints, except as documented Integumentary/Breasts Skin/Breast: Reports system reviewed and no additional complaints, except as documented Patient History Medical History Chronic low back pain Patient denies medical problems Surgical History Status post wisdom tooth extraction Social History Smoking Status: Current every day smoker Smoking Status: Current every day smoker tobacco type: cigarettes alcohol intake frequency: holidays/special occasions only Substance Use Type: marijuana Exam Initial Vital Signs Initial Vital Signs: Vital Signs Temperature 98.6 F 02/24/23 17:21 Pulse Rate 75 02/24/23 17:21 Respiratory Rate 16 02/24/23 17:21 Blood Pressure 121/68 02/24/23 17:21 Pulse Oximetry 99 02/24/23 17:21 Oxygen Delivery Method Room Air 02/24/23 17:21 Const General: cooperative, comfortable and No ill appearing HENMT Head: normal to inspection and normocephalic Mouth: oral mucosae normal and moist mucous membranes Throat: posterior oropharynx normal Neck Lymphatic: No lymphadenopathy Resp Effort & Inspection: normal respiratory effort Skin General: no rashes or lesions noted Neuro General: patient alert, patient awake, patient oriented x3 and moves all extremities Course Orders Ordered: ED Orders 02/24/23 17:33 COVID19 -Nasal RAPID Stat Strep Grp A by PCR Rapid Stat Discontinued Medications Penicillin G Benzathine (Penicillin G Benzathine 1,200,000 Unit/2 Ml Syringe) 1,200,000 unit IM NOW ONE Stop: 02/24/23 18:58 Last Admin: 02/24/23 19:19 Dose: 1,200,000 unit Documented By: ST Vital Signs Vital signs: Vital Signs - 8 hr 02/24/23 17:21 02/24/23 19:21 Temperature 98.6 F 97.8 F Pulse Rate 75 73 Respiratory Rate 16 16 Blood Pressure 121/68 111/64 Pulse Oximetry 99 100 Oxygen Delivery Method Room Air Room Air Medical Decision Making Lab Data Lab results reviewed: Yes I reviewed the patient's lab results. Labs: Lab Results 02/24/23 02/24/23 Range/Units 17:33 17:33 SARS-CoV-2 (PCR) Negative (Negative) Group A Strep (PCR) Positive H (Negative) MDM Narrative Medical decision making narrative: Patient is positive for strep throat. Discussed treatment options to include IM Bicillin versus oral antibiotics. After the discussion the patient opted for IM Bicillin. Low suspicion for retropharyngeal abscess, peritonsillar abscess. No respiratory distress. Patient was given the shot of antibiotics and discharged home. He was given return precautions. He expressed understanding and agreement. Discharge Plan Departure Patient Disposition: Home Clinical Impression: Strep throat Instructions: DI for Strep Throat Activity Restrictions/Additional Instructions: You can take Tylenol and/or ibuprofen for any fevers. Continue any other medications as directed. Return to the emergency department for new or worsening symptoms. Prescriptions: No Action loratadine [Claritin] 10 mg tablet 10 mg PO DAILY PRN (Reason: allergy symptoms) Qty: 30 0RF meloxicam [Mobic] 7.5 mg tablet 7.5 mg PO DAILY Qty: 30 0RF Rx Instructions: 1-2 tablets daily with food for back pain. Not with other NSAIDs levofloxacin 0.5 % drops 2 drp EYE-RIGHT Q2H Qty: 5 0RF Rx Instructions: 2GTT R eye Q2H for 2 days then Q6H for 5 days Cepacol Sore Throat (mendoza-men) 15-3.6 mg lozenge 1 sharron mucous membrane Q4H PRN (Reason: sore throat) Qty: 16 0RF prednisone 20 mg tablet 20 mg PO DAILY Qty: 4 0RF cyclobenzaprine 10 mg tablet 10 mg PO TID PRN (Reason: muscle spasm) Qty: 10 0RF mupirocin 2 % ointment 1 applic topical BID Qty: 15 0RF docosanol [Abreva] 10 % cream 1 applic topical 5XD Qty: 2 0RF amoxicillin-pot clavulanate [Augmentin] 500-125 mg tablet 1 tab PO BID Qty: 14 0RF Stand Alone Forms: Patient Portal/API
[2023-02-24] MEDS: PENICILLIN G BENZATHINE 1,200,000 UNIT/2 ML SYRINGE 1200000 UNIT IM (19:19)
[2023-02-24 19:21] VITALS: BP 111/64; PULSE 73; RESP 16; TEMP 36.6; O2SAT 100
== END 2023-02-24 19:35 | disposition home or self-care (01) ==
PROVIDERS: Emergency Medicine; Emergency Provider Emergency Medicine
DX: J02.0 Streptococcal pharyngitis (principal); Z20.822 Contact with and (suspected) exposure to COVID-19
CPT/HCPCS: 87635; 87651; 96372; 99283; C9803; J0561

== ENCOUNTER 2024-10-01 11:58 | Emergency (ER) | payer SELFPAY ==
[2024-10-01] VITALS (18 sets, daily range): BP systolic 110–141; BP diastolic 60–76; PULSE 83–107; RESP 14–32; TEMP 36.4; O2SAT 98–100
--- NOTE | 2024-10-01 12:11 | EKG_ITS ---
[address] [address] Test Date: 2024-10-01 Pat Name: Mejia Rivera Department: Room: Gender: Male [employer]: STEVEN : 2000 Requested By: Order Number: [id number] Reading MD: Bertrand Chavarria MD Measurements Intervals [place] Rate: 95 P: 57 NE: 154 QRS: -30 QRSD: 100 T: 43 QT: 368 QTc: 462 Interpretive Statements Poor data quality, interpretation may be adversely affected Normal sinus rhythm Left axis deviation NO PRIOR TRACING Electronically Signed On 10-03-2024 8:48:57 PDT by Bertrand Chavarria MD
[2024-10-01] MEDS: NALOXONE 1 MG/ML SYRINGE 2 MG IV ×3 (12:24→13:42)
[2024-10-01 12:25] LABS: Add Manual Diff / Slide Review NO; Basophils Absolute Auto 0 /uL (0-100); Basophils Percent Auto 0.3 % (0-2); Eosinophils Absolute Auto 0 /uL (0-450); Hematocrit 46.4 % (41-53); Lymphocytes Absolute Auto 1700 /uL (1100-4500); Lymphocytes Percent Auto 20.6 % (25-40); Mean Corpuscular HGB Conc 34.5 % (30-36); Mean Corpuscular Hemoglobin 30.8 PG (26-34); Mean Corpuscular Volume 89.1 fL (80-100); Monocytes Absolute Auto 300 /uL (0-900); Neutrophils Absolute Auto 6200 /uL (1500-7000); Neutrophils Percent Auto 75.1 % (50-75); Platelet Count 410 X10^3/uL (150-400); Red Blood Cell Count 5.21 X10^6/uL (4.5-5.9); Red Cell Distribution Width 13.4 % (11.6-14.8); White Blood Cell Count 8.3 X10^3/uL (4.5-11.0)
[2024-10-01] MEDS: METOCLOPRAMIDE 10 MG/2 ML INJ IV (12:38)
[2024-10-01 12:41] LABS: Acetaminophen < 10 ug/mL (10-30); Alanine Aminotransferase 37 IU/L (<50); Albumin 5.4 g/dL (3.5-5.0); Albumin Globulin Ratio 1.4 (1.0-2.8); Alkaline Phosphatase 67 U/L (38-126); Aspartate Aminotransferase 44 IU/L (17-59); BUN Creatinine Ratio 15.6 (6-22); Bilirubin Total 0.6 mg/dL (0.2-1.3); Blood Urea Nitrogen 12 mg/dL (9-20); Calcium 10.5 mg/dL (8.4-10.2); Carbon Dioxide 20 mmol/L (22-32); Chloride 102 mmol/L (98-107); Estimated Glomerular Filt Rate > 60 mL/min (>60); Ethanol (ETOH) < 10 mg/dL; Globulin 3.8 g/dL (1.7-4.1); Glucose 122 mg/dL (70-100); HEMOLYSIS < 15 (0-50); Potassium 3.6 mmol/L (3.4-5.1); Salicylate < 1.0 mg/dL (<20); Sodium 140 mmol/L (137-145); Total Protein 9.2 g/dL (6.3-8.2)
--- NOTE | 2024-10-01 12:45 | ED_ITS ---
HPI - Altered Mental Status General Chief Complaint: Altered Mental Status Stated Complaint: N/V, took drugs Time Seen by Provider: 10/01/24 12:45 Source: EMS Mode of arrival: EMS History of Present Illness HPI narrative: 23-year-old gentleman brought in by EMS for drug overdose with Suboxone and fentanyl powder he said he took 16 mg underneath the tongue earlier today per EMS given 2mg Narcan and zofran 8mg IV but still sedated at this time. Other than what is stated 14 point review of system is negative Related Data Previous Rx's Medication Instructions Recorded loratadine 10 mg tablet (Claritin) 10 mg PO DAILY PRN allergy 04/01/19 symptoms #30 tabs meloxicam 7.5 mg tablet (Mobic) 7.5 mg PO DAILY back pain #30 tabs 04/13/19 docosanol 10 % topical cream 1 applic topical 5XD #2 grams 03/05/22 (Abreva) mupirocin 2 % topical ointment 1 applic topical BID #15 grams 03/05/22 amoxicillin 500 mg-potassium 1 tab PO BID #14 tabs 03/30/22 clavulanate 125 mg tablet (Augmentin) levofloxacin 0.5 % eye drops 2 drp EYE-RIGHT Q2H #5 mL 04/04/22 benzocaine 15 mg-menthol 3.6 mg 1 sharron mucous membrane Q4H PRN sore 10/26/22 lozenges (Cepacol Sore Throat throat #16 ea (benzocaine-menthol)) prednisone 20 mg tablet 20 mg PO DAILY #4 tabs 10/26/22 cyclobenzaprine 10 mg tablet 10 mg PO TID PRN muscle spasm #10 02/10/23 tabs Allergies Allergy/AdvReac Type Severity Reaction Status Date / Time No Known Drug Allergies Allergy Verified 02/10/23 12:36 Review of Systems Review of Systems ROS Unobtainable: All systems reviewed & are unremarkable except as noted in HPI and below Patient History Medical History Chronic low back pain Patient denies medical problems Surgical History Status post wisdom tooth extraction Social History Smoking Status: Current every day smoker Smoking Status: Current every day smoker tobacco type: cigarettes alcohol intake frequency: holidays/special occasions only Exam Narrative Exam Narrative: GENERAL: [23] year old patient appears stated age. Well-developed patient, in mild distress. HEAD: Atraumatic. Normocephalic. EYES: Pupils equal round and reactive and dilated at 6mm b/l. Extraocular motions intact. No scleral icterus. No injection or drainage. ENT: Nose without bleeding, purulent drainage. Throat without erythema, tonsillar hypertrophy or exudate. Airway patent. NECK: Trachea midline. Non tender CARDIOVASCULAR: Regular rate and rhythm without murmurs, gallops, or rubs. RESPIRATORY: Clear to auscultation. Breath sounds equal bilaterally. No wheezes, rales, or rhonchi. GASTROINTESTINAL: Abdomen soft, non-tender, nondistended. EXTREMITIES: No edema or joint tenderness. BACK: Nontender without deformity or crepitance. No flank tenderness. NEURO: AOx3. SKIN: No rash or erythema of visible areas Initial Vital Signs Initial Vital Signs: Vital Signs Blood Pressure 126/76 10/01/24 12:03 Course Orders Ordered: ED Orders 10/01/24 12:00 Acetaminophen Stat Complete Blood Count AUTO DIFF Stat Comprehensive Metabolic Panel Stat Ethanol (ETOH) Stat Free T4, Direct Thyroxine Stat Salicylate Stat Thyroid Stimulating Hormone Stat 10/01/24 15:12 Urine Culture Stat Urine Microscopic Stat 10/01/24 15:13 Urine Drug Screen, Rapid Stat Ondansetron HCl (Ondansetron 4 Mg/2 Ml Inj) 4 mg IV NOW PRN PRN Reason: Nausea And Vomiting Ondansetron HCl (Ondansetron 4 Mg Odt) 4 mg SL NOW PRN PRN Reason: Nausea And Vomiting Discontinued Medications Lactated Ringer's (Lactated Ringers) 1,000 mls @ 1,000 mls/hr IV BOLUS ONE Stop: 10/01/24 13:46 Last Infusion: 10/01/24 15:14 Dose: Infused Documented By: Admin: 10/01/24 13:34 Dose: 1,000 mls/hr Documented By: KATELYN Metoclopramide HCl (Metoclopramide 10 Mg/2 Ml Inj) 10 mg IV NOW ONE Stop: 10/01/24 12:32 Last Admin: 10/01/24 12:38 Dose: 10 mg Documented By: JOSÉ MIGUEL Naloxone HCl (Naloxone 1 Mg/Ml Syringe) 2 mg IV NOW ONE Stop: 10/01/24 12:23 Last Admin: 10/01/24 12:24 Dose: 2 mg Documented By: KATELYN Naloxone HCl (Naloxone 1 Mg/Ml Syringe) 2 mg IV NOW ONE Stop: 10/01/24 12:44 Last Admin: 10/01/24 12:48 Dose: 2 mg Documented By: JOSÉ MIGUEL Naloxone HCl (Naloxone 1 Mg/Ml Syringe) 2 mg IV NOW ONE Stop: 10/01/24 13:41 Last Admin: 10/01/24 13:42 Dose: 2 mg Documented By: KATELYN Vital Signs Vital signs: Vital Signs - 8 hr 10/01/24 12:03 10/01/24 12:04 10/01/24 12:08 Temperature 97.6 F Pulse Rate 95 H 93 H Respiratory Rate 14 Blood Pressure 126/76 126/76 Pulse Oximetry 100 100 Oxygen Delivery Method Room Air 10/01/24 12:14 10/01/24 12:14 10/01/24 12:26 Temperature Pulse Rate 93 H Respiratory Rate 24 Blood Pressure 117/68 117/70 Pulse Oximetry 99 Oxygen Delivery Method Room Air 10/01/24 12:26 10/01/24 12:30 10/01/24 12:30 Temperature Pulse Rate 92 H 101 H Respiratory Rate 24 24 Blood Pressure 116/64 Pulse Oximetry 99 99 Oxygen Delivery Method 10/01/24 13:00 10/01/24 13:00 10/01/24 13:30 Temperature Pulse Rate 105 H 91 H Respiratory Rate 21 22 Blood Pressure 141/70 H Pulse Oximetry 100 Oxygen Delivery Method Room Air 10/01/24 13:30 10/01/24 14:00 10/01/24 14:00 Temperature Pulse Rate 107 H Respiratory Rate 26 H Blood Pressure 124/71 129/72 Pulse Oximetry 99 Oxygen Delivery Method Room Air 10/01/24 14:30 10/01/24 14:30 10/01/24 15:00 Temperature Pulse Rate 99 H 100 H Respiratory Rate 25 H 32 H Blood Pressure 116/67 Pulse Oximetry 100 99 Oxygen Delivery Method MDM - Altered Mental Status Lab Data 10/01/24 12:00 10/01/24 12:00 Labs: Lab Results 10/01/24 10/01/24 10/01/24 Range/Units 12:00 15:12 15:13 WBC 8.3 (4.5-11.0) X10^3/uL RBC 5.21 (4.5-5.9) X10^6/uL Hgb 16.0 (13.5-17.5) g/dL Hct 46.4 (41-53) % MCV 89.1 (80-100) fL MCH 30.8 (26-34) PG MCHC 34.5 (30-36) % RDW 13.4 (11.6-14.8) % Plt Count 410 H (150-400) X10^3/uL Neut % (Auto) 75.1 H (50-75) % Lymph % (Auto) 20.6 L (25-40) % Douglas % (Auto) 4.0 (3-14) % Eos % (Auto) 0.0 L (2-4) % Baso % (Auto) 0.3 (0-2) % Neut # (Auto) 6200 (1215-8258) /uL Lymph # (Auto) 1700 (2525-0760) /uL Douglas # (Auto) 300 (0-900) /uL Eos # (Auto) 0 (0-450) /uL Baso # (Auto) 0 (0-100) /uL Sodium 140 (137-145) mmol/L Potassium 3.6 (3.4-5.1) mmol/L Chloride 102 (98-107) mmol/L Carbon Dioxide 20 L (22-32) mmol/L BUN 12 (9-20) mg/dL Creatinine 0.77 (0.66-1.25) mg/dL Estimated GFR > 60 (>60) mL/min BUN/Creatinine Ratio 15.6 (6-22) Glucose 122 H (70-100) mg/dL Calcium 10.5 H (8.4-10.2) mg/dL Total Bilirubin 0.6 (0.2-1.3) mg/dL AST 44 (17-59) IU/L ALT 37 (<50) IU/L Alkaline Phosphatase 67 (38-126) U/L Total Protein 9.2 H (6.3-8.2) g/dL Albumin 5.4 H (3.5-5.0) g/dL Globulin 3.8 (1.7-4.1) g/dL Albumin/Globulin Ratio 1.4 (1.0-2.8) TSH 0.493 (0.47-4.68) uIU/mL Free T4 0.90 (0.78-2.19) ng/dL Urine RBC 10-30/hpf H (0-5/HPF) Urine WBC 10-30/hpf H (0-5/HPF) Ur Squamous Epith Cells 1-5 /hpf (0-5/HPF) Urine Bacteria Few (2-10) H (None) Urine Sperm 0-1/hpf Ur Culture Indicated? Specimen cultured Micro UA Comment Vol Urine Centrifuged 6 Salicylates < 1.0 (<20) mg/dL U Opiates 300ng/mL cut Negative (Negative) Ur Oxycodone Screen Negative (Negative) Urine Methadone Screen Negative (Negative) Acetaminophen < 10 (10-30) ug/mL Ur Barbiturates Screen Negative (Negative) U Tricyclic Antidepress Negative (Negative) Ur Phencyclidine Scrn Negative (Negative) Ur Amphetamines Screen Negative (Negative) U Methamphetamines Scrn Negative (Negative) Ur MDMA Scrn (Ecstasy) Negative (Negative) U Benzodiazepines Scrn Negative (Negative) Urine Cocaine Screen Negative (Negative) U Marijuana (THC) Screen Positive H (Negative) Urine pH Normal (Normal) Urine Specific [place] Normal (Normal) Ethyl Alcohol < 10 ( - 10) mg/dL Ur Creatinine Normal (Normal) ECG Data Attestation: I personally reviewed and interpreted this ECG as follows: Interpretation: Normal Sinus rhythm HR [address]-t wave change Normal axis No previous old ekg MDM Narrative Medical decision making narrative: All lab work has been reviewed. Patient is way more awake alert oriented able to tell me his name where he is at whose parents are he has been off of his Suboxone for over a a few weeks because he has not been able to get a ride. And today he took Suboxone and some leftover fentanyl accidentally to help with his pain control his end-tidal is now 36 at this point on the monitor. His vital signs are all normal. All lab work EKG vital signs nurse note triage note medication list a previous ER visits all reviewed. Differential diagnosis includes accidental ingestion polysubstance abuse chronic pain. Return with new or worsening symptoms Discharge Plan Departure Patient Disposition: Home Clinical Impression: Accidental drug ingestion Qualifiers: Encounter type: initial encounter Qualified Code(s): T50.901A - Poisoning by unspecified drugs, medicaments and biological substances, accidental (unintentional), initial encounter Instructions: DI for Accidental Ingestion -- Adult Activity Restrictions/Additional Instructions: Return with new or worsening symptoms Prescriptions: No Action loratadine [Claritin] 10 mg tablet 10 mg PO DAILY PRN (Reason: allergy symptoms) Qty: 30 0RF meloxicam [Mobic] 7.5 mg tablet 7.5 mg PO DAILY Qty: 30 0RF Rx Instructions: 1-2 tablets daily with food for back pain. Not with other NSAIDs levofloxacin 0.5 % drops 2 drp EYE-RIGHT Q2H Qty: 5 0RF Rx Instructions: 2GTT R eye Q2H for 2 days then Q6H for 5 days Cepacol Sore Throat (mendoza-men) 15-3.6 mg lozenge 1 sharron mucous membrane Q4H PRN (Reason: sore throat) Qty: 16 0RF prednisone 20 mg tablet 20 mg PO DAILY Qty: 4 0RF cyclobenzaprine 10 mg tablet 10 mg PO TID PRN (Reason: muscle spasm) Qty: 10 0RF mupirocin 2 % ointment 1 applic topical BID Qty: 15 0RF docosanol [Abreva] 10 % cream 1 applic topical 5XD Qty: 2 0RF amoxicillin-pot clavulanate [Augmentin] 500-125 mg tablet 1 tab PO BID Qty: 14 0RF Stand Alone Forms: Patient Portal/API/Survey
[2024-10-01 13:12] LABS: Thyroid Stimulating Hormone 0.493 uIU/mL (0.47-4.68)
[2024-10-01] MEDS: LACTATED RINGERS 1,000 ML 1000 ML IV (13:34)
--- NOTE | 2024-10-01 14:00 | PC.NURSE ---
Pt received third dose of Narcan for a total of 7mg (including EMS dose). Pt does appear to wake up more after each dose. This time was able to say what? And shook his head no when asked if he remembered what happened today. Family at bedside. Pt also cleaned up due to diarrhea/incontinence. Brief placed and bed changed.
[2024-10-01 15:28] LABS: UR Morphine/Opiate cutoff 300 Negative (Negative); Ur Creatinine Normal (Normal); Ur Specific Gravity Normal (Normal); Urine Amphetamines Negative (Negative); Urine Barbiturates Negative (Negative); Urine Benzodiazepines Negative (Negative); Urine Cocaine Negative (Negative); Urine MDMA Negative (Negative); Urine Methadone Negative (Negative); Urine Methamphetamines Negative (Negative); Urine Oxycodone Negative (Negative); Urine Phencyclidine Negative (Negative); Urine Tetrahydrocannabinol Positive (Negative); Urine Tricyclic Antidepressant Negative (Negative); Urine pH Normal (Normal)
[2024-10-01 15:29] LABS: Bacteria Urine Few (2-10); RBC Urine 10-30/HPF (0-5/HPF); Urine Volume 6; WBC Urine 10-30/HPF (0-5/HPF)
[2024-10-01 15:30] LABS: Squamous Epithelial Cell Urine 1-5 /HPF (0-5/HPF)
[2024-10-01 15:31] LABS: Culture Indicated Urine Specimen Cultured; Sperm Urine 0-1/HPF
[2024-10-01 16:58] LABS: Base Excess ABG 3.5 mmol/L (-2-3); HCO3 ABG 26 mmol/L (23-27); Oxygen Saturation ABG 98 % (95-100); PCO2 ABG 32.1 mmHg (35-45); PO2 ABG 91 mmHg (80-100); TCO2 ABG 25 mmol/L (23-27); pH ABG 7.52 (7.35-7.45)
== END 2024-10-01 17:45 | disposition home or self-care (01) ==
PROVIDERS: Emergency Provider Family Medicine
DX: T50.901A Poisoning by unspecified drugs, medicaments and biological substances, accidental (unintentional), initial encounter (principal)
CPT/HCPCS: 36600; 80053; 80305; 80320; 80329; 81015; 84439; 84443; 85025; 87086; 93005; 93010; 96361; 96374; 96375; 96376; 99284; G0480; J2310; J2765